=== PATIENT | female | born 1980 | race African-American/Black ===

== ENCOUNTER 2017-12-24 06:13 | Inpatient (IN) ==
[2017-12-24] MEDS ORDERED: MEPERIDINE 50 MG/1 ML VIAL IV PRN (07:12)
[2017-12-24] MEDS ORDERED: BUTORPHANOL 2 MG/ML VIAL IV PRN (07:12)
[2017-12-24] MEDS ORDERED: ONDANSETRON 4 MG/2 ML VIAL IV PRN ×2 (07:12→19:04)
[2017-12-24] MEDS ORDERED: LACTATED RINGERS 500 ML IV PRN (07:12)
[2017-12-24] MEDS ORDERED: LACTATED RINGERS 1,000 ML IV ONE ×2 (07:12→08:00)
[2017-12-24] MEDS ORDERED: OXYTOCIN/LR 20 UNIT/1,000 ML BAG IV SCH (07:30)
[2017-12-24 07:48] LABS: Basophils % 0.2 % (0.0-0.8); Eosinophils % 0.3 % (0.00-10.9); Hematocrit 30.8 VOL% (35.7-47.0); Hemoglobin 9.1 GM/DL (12.0-16.0); Immature Granulocytes % 0.7 %; Immature Granulocytes Absolute 0.04 #; Lymphocytes # 1.2 10*3/uL (1.4-4.0); Lymphocytes % 20.7 % (21.3-54.2); Mean Corpuscular HGB Conc 29.5 GM/DL (32-36); Mean Corpuscular Hemoglobin 21 PG (27-34); Mean Corpuscular Volume 71.6 FL (87-102); Mean Platelet Volume 11.4 FL (9.6-12.0); Monocytes # 0.6 10*3/uL (0.11-0.8); Monocytes % 9.7 % (1.7-12.7); Neutrophils % 68.4 % (38.7-73.9); Platelet Count 148 T/CUMM (130-400); Red Cell Distribution Width 20.7 % (9.3-17.3); White Blood Count 5.9 T/CUMM (4-12)
[2017-12-24 07:59] LABS: INR 0.9; Partial Thromboplastin Time 28.2 SECS (0-40)
[2017-12-24] MEDS ORDERED: LACTATED RINGERS 1,000 ML IV SCH ×2 (08:00)
[2017-12-24] MEDS ORDERED: NALOXONE 0.4 MG/ML VIAL IV PRN (08:00)
[2017-12-24] MEDS ORDERED: LACTATED RINGERS 250 ML IV PRN (08:00)
[2017-12-24] MEDS ORDERED: FAMOTIDINE 20 MG/2 ML VIAL IV ONE (08:00)
[2017-12-24] MEDS ORDERED: diphenhydrAMINE 50 MG/1 ML VIAL IV PRN ×2 (08:00)
[2017-12-24] MEDS ORDERED: ONDANSETRON 4 MG/2 ML VIAL IV ONE (08:00)
[2017-12-24] MEDS ORDERED: CITRIC ACID/SODIUM CITRATE 30 ML UDCUP PO ONE (08:00)
[2017-12-24] MEDS ORDERED: ePHEDrine 50 MG/ML AMP IV PRN (08:00)
[2017-12-24 08:18] LABS: Albumin 2.6 G/DL (3.4-5.0); Bilirubin,Total 0.7 MG/DL (0.2-1.0); Calcium 8.7 MG/DL (8.5-10.1); Osmolality,Calculated 272.7 MOS/KG (273-304); Potassium 3.5 MMOL/L (3.5-5.1); Total Protein 6.6 G/DL (6.4-8.3); Uric Acid 3.7 MG/DL (2.6-6.0)
[2017-12-24] MEDS: LACTATED RINGERS 1,000 ML IV SCH (08:19)
[2017-12-24 10:09] LABS: Apearance,Urine CLEAR (Clear); Bacteria,Urine Occasional /HPF (Few); Bilirubin,Urine Negative (Negative); Blood, Urine Small mg/dL (Negative); Glucose,Urine (UA) Negative (Negative); Ketones,Urine 20 mg/dL (Negative); Mucus,Urine Occasional /LPF (Occasional); Nitrite,Urine Negative (Negative); Protein,Urine Negative; RBC,Urine 12 /HPF (0-4); Squamous Epithelial Cell,Urine Occasional /HPF (0-10); Urine Color Yellow (Yellow); Urine Specific Gravity 1.009 (1.001-1.035); Urine Urobilinogen < 2.0 EU/DL (0.2-1.0); WBC,Urine 5 /HPF (0-6)
[2017-12-24] MEDS ORDERED: ceFAZolin 3,000 MG in SYRINGE 1 EACH IV ONE (17:19)
[2017-12-24] MEDS ORDERED: OXYTOCIN 10 UNIT/ML VIAL IM ONE (17:30)
[2017-12-24] MEDS ORDERED: OXYTOCIN/LR 30 UNIT/1,000 ML BAG IV ONE (17:30)
[2017-12-24] MEDS ORDERED: MORPHINE 10 MG/10 ML VIAL ONE (18:00)
[2017-12-24] MEDS ORDERED: LIDOCAINE MPF 2% /EPI 20 ML VIAL ONE (18:00)
[2017-12-24] MEDS ORDERED: ACETAMINOPHEN 325 MG TABLET PO PRN (19:04)
[2017-12-24] MEDS ORDERED: RHO(D) IMMUNE GLOBULIN 300 MCG SYRINGE IM ONE (19:04)
[2017-12-24] MEDS ORDERED: OXYTOCIN/LR 20 UNIT/1,000 ML BAG IV ONE (19:04)
[2017-12-24] MEDS ORDERED: SIMETHICONE CHEW 80 MG TABLET PO PRN (19:04)
[2017-12-24] MEDS ORDERED: hydrOXYzine HCL 25 MG/1 ML VIAL IM PRN (19:09)
[2017-12-24] MEDS ORDERED: HYDROmorphone 2 MG/1 ML VIAL IV PRN (19:09)
[2017-12-24 20:17] LABS: Cord Venous Blood HCO3 21.5 MMOL/L; Cord Venous Blood PCO2 38.3 MMHG; Cord Venous Blood PO2 40.4 MMHG
[2017-12-24] MEDS: DOCUSATE SODIUM 100 MG CAPSULE PO SCH (22:39)
[2017-12-25] MEDS ORDERED: SODIUM CHLORIDE 0.9% 50 ML IV ONE (01:52)
[2017-12-25] MEDS: ceFAZolin 1,000 MG in SYRINGE 1 EACH IV SCH ×2 (01:59→09:37)
[2017-12-25] MEDS: LACTATED RINGERS 1,000 ML IV SCH ×3 (02:33→02:46)
[2017-12-25] MEDS: fentaNYL 2 MCG/ROPIV 0.2% EPID 100 ML EPIDURAL SCH (02:39)
[2017-12-25 02:55] LABS: Basophils % 0.1 % (0.0-0.8); Eosinophils % 0.1 % (0.00-10.9); Hematocrit 26.1 VOL% (35.7-47.0); Hemoglobin 7.7 GM/DL (12.0-16.0); Immature Granulocytes % 0.5 %; Immature Granulocytes Absolute 0.04 #; Lymphocytes # 0.9 10*3/uL (1.4-4.0); Lymphocytes % 11.6 % (21.3-54.2); Mean Corpuscular HGB Conc 29.5 GM/DL (32-36); Mean Corpuscular Hemoglobin 21 PG (27-34); Mean Corpuscular Volume 72.3 FL (87-102); Mean Platelet Volume 11.6 FL (9.6-12.0); Monocytes # 0.8 10*3/uL (0.11-0.8); Monocytes % 10.3 % (1.7-12.7); Neutrophils # 5.7 10*3/uL (1.4-7.4); Neutrophils % 77.4 % (38.7-73.9); Platelet Count 128 T/CUMM (130-400); Red Blood Count 3.61 MC/CUMM (3.8-5.5); Red Cell Distribution Width 20.3 % (9.3-17.3); White Blood Count 7.4 T/CUMM (4-12)
[2017-12-25 03:32] LABS: Platelet Estimate Decreased; Polychromasia Few
[2017-12-25] MEDS: IBUPROFEN 800 MG TABLET PO PRN ×2 (06:05→19:51)
[2017-12-25] MEDS: MAGNESIUM HYDROXIDE SUSP 30 ML UDCUP PO PRN ×2 (09:38→19:51)
[2017-12-25] MEDS: DOCUSATE SODIUM 100 MG CAPSULE PO SCH ×2 (09:38→19:52)
[2017-12-25] MEDS: MULTIVITAMIN (PRENATAL) TABLET PO SCH (09:38)
[2017-12-25] MEDS: METOCLOPRAMIDE 10 MG TABLET PO SCH ×2 (09:38→17:36)
[2017-12-25] MEDS ORDERED: SODIUM CHLORIDE 0.9% 1,000 ML IV PRN (09:46)
[2017-12-25] MEDS ORDERED: diphenhydrAMINE CAP 25 MG CAPSULE ONE (11:32)
[2017-12-25] MEDS ORDERED: diphenhydrAMINE CAP 25 MG CAPSULE PO ONE (11:34)
[2017-12-25 17:38] LABS: Basophils % 0.3 % (0.0-0.8); Eosinophils % 0.3 % (0.00-10.9); Hematocrit 26.5 VOL% (35.7-47.0); Immature Granulocytes % 0.7 %; Immature Granulocytes Absolute 0.05 #; Lymphocytes # 0.8 10*3/uL (1.4-4.0); Lymphocytes % 11.9 % (21.3-54.2); Mean Corpuscular HGB Conc 30.2 GM/DL (32-36); Mean Corpuscular Hemoglobin 22 PG (27-34); Mean Corpuscular Volume 73.2 FL (87-102); Mean Platelet Volume 12.1 FL (9.6-12.0); Monocytes # 0.8 10*3/uL (0.11-0.8); Monocytes % 11.6 % (1.7-12.7); Neutrophils # 5.3 10*3/uL (1.4-7.4); Neutrophils % 75.2 % (38.7-73.9); Platelet Count 127 T/CUMM (130-400); Red Blood Count 3.62 MC/CUMM (3.8-5.5); Red Cell Distribution Width 21.7 % (9.3-17.3)
[2017-12-26] MEDS: DOCUSATE SODIUM 100 MG CAPSULE PO SCH ×2 (00:29→09:12)
[2017-12-26] MEDS: METOCLOPRAMIDE 10 MG TABLET PO SCH (00:29)
[2017-12-26] MEDS: IBUPROFEN 800 MG TABLET PO PRN (05:25)
[2017-12-26 07:28] VITALS: BP 113/61
[2017-12-26] MEDS: MULTIVITAMIN (PRENATAL) TABLET PO SCH (09:12)
[2017-12-26] MEDS ORDERED: INFLUENZA VIRUS VACCINE 0.5 ML SYRINGE IM ONE (11:07)
[2017-12-26] MEDS ORDERED: DIPH/TET/ACEL PERT BOOSTER VACCINE 0.5 ML VIAL IM ONE (11:50)
== END 2017-12-26 13:35 | disposition home or self-care (01) | DRG 765 ==
LOC: N.LDOUT 06:13 → N.LD 06:14 → N.OB 12-25 01:11
PROVIDERS: ADMIT Obstetrics & Gynecology; ATTEND Obstetrics & Gynecology
PROC: LDCSECT (ICD-10-PCS; 2017-12-24 18:01)